=== PATIENT | male | born 1985 ===

== ENCOUNTER 2018-05-27 20:23 | Emergency (ER) | payer BC, OTHER ==
[2018-05-27 20:23] VITALS: BMI 28.2
[2018-05-27 20:52] VITALS: TEMP 99; O2SAT 99
[2018-05-27] MEDS ORDERED: Lidocaine 1% Inj (20ml) IJ STA (21:05)
--- NOTE | 2018-05-27 21:07 | ED PDOC ---
Arrival/HPI - General Chief Complaint: Lower Extremity Problem/Injury Time Seen by Provider: 05/27/18 21:03 Historian: Patient - History of Present Illness Narrative History of Present Illness (Text): 05/27/18 21:04 33 y/o male, no significant pmh, nkda, c/o lt. foot 1st digit ingrown toe pain x 1 week. Aching pain, aggravated by touching, no numbness or tingling, no headache or night sweat, no fever or chills, no palpitation, no other medical or psychological complaints. Past Medical History - Provider Review Nursing Documentation Reviewed: Yes - Infectious Disease Hx of Infectious Diseases: None - Cardiac Hx Cardiac Disorders: No Hx Hypertension: Yes - Pulmonary Hx Tuberculosis: No - Neurological HX Cerebrovascular Accident: No Hx Seizures: No - Hematological/Oncological Hx Cancer: No - Genitourinary/Gynecological Hx Sexually Transmitted Diseases: No - Psychiatric Hx Anxiety: Yes Hx Substance Use: No - Surgical History Hx Appendectomy: Yes - Anesthesia Hx Anesthesia: Yes Hx Anesthesia Reactions: No Hx Malignant Hyperthermia: No Family/Social History - Physician Review Nursing Documentation Reviewed: Yes Family/Social History: Unknown Family HX Smoking Status: Never Smoked Hx Alcohol Use: No Hx Substance Use: No Allergies/Home Meds Allergies/Adverse Reactions: Allergies No Known Allergies Allergy (Verified 05/27/18 20:49) Review of Systems - Review of Systems Constitutional: absent: Fatigue, Fevers Eyes: absent: Vision Changes ENT: absent: Hearing Changes Respiratory: absent: SOB, Cough Cardiovascular: absent: Chest Pain Gastrointestinal: absent: Abdominal Pain, Nausea, Vomiting Skin: Other (ingrown toe nail). absent: Rash, Pruritis, Skin Lesions Neurological: absent: Headache, Dizziness Psychiatric: absent: Anxiety, Depression, Suicidal Ideation Physical Exam Vital Signs Reviewed: Yes Vital Signs Temp Pulse Resp BP Pulse Ox 05/27/18 20:46 99 F 84 18 118/92 H 99 Temperature: Afebrile Blood Pressure: Hypertensive Pulse: Regular Respiratory Rate: Normal Appearance: Positive for: Well-Appearing, Non-Toxic, Comfortable Pain Distress: Mild Mental Status: Positive for: Alert and Oriented X 3 - Systems Exam Head: Present: Atraumatic, Normocephalic Pupils: Present: PERRL Extroacular Muscles: Present: EOMI Conjunctiva: Present: Normal Mouth: Present: Moist Mucous Membranes Neck: Present: Normal Range of Motion Respiratory/Chest: Present: Clear to Auscultation, Good Air Exchange. No: Respiratory Distress, Accessory Muscle Use Cardiovascular: Present: Regular Rate and Rhythm, Normal S1, S2. No: Murmurs Abdomen: No: Tenderness, Distention, Peritoneal Signs Back: Present: Normal Inspection Upper Extremity: Present: Normal Inspection. No: Cyanosis, Edema Lower Extremity: Present: Normal Inspection, Other (Lt. foot 1st digit toe: lateral aspect visible moderate ingrown toenail noted with no cellulitis or streaking, no ulcers, FROM without limtiation, sensation intact, motor 5/5, + DPPT pulses, capillary refill< 2 seconds, neurovascular intact. ). No: Edema Neurological: Present: GCS=15, CN II-XII Intact, Speech Normal Skin: Present: Warm, Dry, Normal Color. No: Rashes Psychiatric: Present: Alert, Oriented x 3, Normal Insight, Normal Concentration Medical Decision Making ED Course and Treatment: 05/27/18 21:06 -Motrin/keflex -will remove the nail. 05/27/18 21:08 PROCEDURE: nail removal Performed by the emergency provider Location: lt. foot 1st digit toe ingrown toenail Description: {"clean wound edges","no foreign bodies"} Distal CMS: Normal. No deficits. Neurovascularly intact. Anesthesia: Lidocaine 1% 2cc toe block on the left foot 1st digit toe Preparation: The wound was cleaned with NS 200cc and clean with Betadyne. The area was prepped and draped in the usual sterile fashion. Exploration: The site was explored and no foreign bodies were found. Procedure: lt. toe nail 1st digit remove with tweezer, cut with scissor parallel to the lateral border which I removed the excess toenail pushing on the skin, gauze and bacitracin dressing Post-Procedure: Good closure and hemostasis. The patient tolerated the procedure well and there were no complications. CSM remains intact. 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 - Medication Orders Current Medication Orders: Discontinued Medications Cephalexin Monohydrate (Keflex) 500 mg PO STAT STA PRN Reason: Protocol Stop: 05/27/18 21:06 Ibuprofen (Motrin Tab) 600 mg PO STAT STA Stop: 05/27/18 21:06 Lidocaine HCl (Lidocaine 1% (20ml)) 2 ml IJ STAT STA Stop: 05/27/18 21:06 - PA / BAR HOST / Resident Statement / has reviewed & agrees with the documentation as recorded. Disposition/Present on Arrival - Present on Arrival Any Indicators Present on Arrival: No History of DVT/PE: No History of Uncontrolled Diabetes: No Urinary Catheter: No History of Decub. 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 Prescriptions: Cephalexin [cephalexin] 500 mg PO QID #30 cap Ibuprofen [Motrin Tab] 600 mg PO QID PRN #30 tab PRN Reason: Other Referrals: Sherman Nelson DPM [Staff Provider] - Follow up with primary Forms: [employer] (Armenian), WORK NOTE
[2018-05-27 22:40] VITALS: BP 122/70; PULSE 80; RESP 17
== END 2018-05-27 22:20 | disposition home or self-care (01) ==
LOC: ED 20:23
DX: L60.0 Ingrowing nail (principal); I10 Essential (primary) hypertension